=== PATIENT | male | born 1990 | race Hispanic/Latino ===

== ENCOUNTER 2018-10-07 10:20 | Emergency (ER) | payer SELFPAY ==
[~2018-10-07] VITALS: Ht 162.6 cm; Wt 74.2 kg
[2018-10-07] MEDS ORDERED: MOTRIN400 MG PO (10:50)
[2018-10-07] MEDS ORDERED: POLYTRIM OS (10:51)
[2018-10-07 11:10] VITALS: BP 141/95
== END 2018-10-07 11:10 | disposition home or self-care (01) | DRG 125 ==
LOC: ED 10:20
DX: T15.02XA Foreign body in cornea, left eye, initial encounter (principal); X58.XXXA Exposure to other specified factors, initial encounter; Y93.89 Activity, other specified; Y92.89 Other specified places as the place of occurrence of the external cause; Y99.0 Civilian activity done for income or pay